=== PATIENT | female | born 2000 | race Two or more races ===

== ENCOUNTER 2020-07-03 12:46 | Emergency (ER) | payer SELFPAY ==
[~2020-07-03] VITALS: Ht 157.5 cm; Wt 45.4 kg
[2020-07-03 12:49] VITALS: BP 118/75
--- NOTE | 2020-07-03 12:56 | NUR ---
ED Nurse Note: patient accompanied by [facility] for medical clearance. Pt is not providing further information. Noted rigth eye swelling. AAO x4, follows commands with non labored breathing.
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
[2020-07-03] MEDS ORDERED: TYLENOL EXTRA500 MG ORAL (13:23)
[2020-07-03 13:48] VITALS: BP 118/75
--- NOTE | 2020-07-03 13:50 | NUR ---
discharge instruction tiana schwartz officer patient may go [facility] to the [facility] for booking
== END 2020-07-03 14:26 | disposition home or self-care (01) ==
LOC: EMR 13:20
DX: S05.11XA Contusion of eyeball and orbital tissues, right eye, initial encounter (principal); Y04.2XXA Assault by strike against or bumped into by another person, initial encounter; Y92.9 Unspecified place or not applicable
CPT/HCPCS: 99282